=== PATIENT | female | born 1995 ===

== ENCOUNTER 2016-06-19 18:34 | Emergency (ER) | payer BC ==
[2016-06-19 18:52] VITALS: BP 121/71
--- NOTE | 2016-06-19 19:15 | EDM.PDOC ---
ED HPI GI/ABDOMINAL - General Chief Complaint: Abdominal Pain Stated Complaint: ABDOMINAL PAIN Time Seen by Provider: 06/19/16 19:14 - History of Present Illness INITIAL COMMENTS - FREE TEXT/NARRATIVE: 21-year-old female presents to the emergency room with lower abdominal discomfort. Patiently she's about 5 weeks she has not seen OB yet but is scheduled to see Dr. Mars at the end of this next month. This been complicated by some intermittent nausea since she knew she was . Today the patient developed lower abdominal discomfort this discomfort is not associated with any nausea vomiting diarrhea constipation she has not had any vaginal bleeding or discharge and she does not describe it as being crampy. She is one para zero. - Related Data Allergies/ADRs: Allergies Allergy/AdvReac Type Severity Reaction Status Date / Time No Known Allergies Allergy Verified 03/22/15 23:56 CLAM [employer]UCKER Home Meds: Home Meds Desogestrel-Ethinyl Estradiol [Desogestrel-Ethinyl Estrad Tab] 1 tab PO DAILY [History] Methylphenidate HCl [Concerta] 36 mg PO DAILY 03/22/15 [History] Escitalopram [Lexapro] 10 mg PO DAILY 06/19/16 [History] Past Medical History HEENT History: Reports: Other (see below) Other HEENT History: oral surgery [employer] History: Reports: Other OB/BYN History: 1 Neurological History: Reports: Migraines Psychiatric History: Reports: ADHD Social & Family History - Family History Family Medical History: Noncontributory - Tobacco Use Smoking Status *Q: Never Smoker - Caffeine Use Caffeine Use: Reports: Coffee - Recreational Drug Use Recreational Drug Use: No ED ROS GENERAL - Review of Systems Review Of Systems: See Below Constitutional: Reports: no symptoms. Denies: fever, chills HEENT: Reports: No symptoms Respiratory: Reports: No Symptoms Cardiovascular: Reports: No symptoms GI/Abdominal: Reports: Abdominal pain, Nausea. Denies: Constipation, Diarrhea, Vomiting : Denies: discharge, flank pain, frequency, hematuria, incontinence, urgency, urinary retention Musculoskeletal: Reports: no symptoms Neurological: Reports: No Symptoms ED EXAM, GI/ABD - Physical Exam Exam: See Below Exam Limited By: No limitations General Appearance: alert, no apparent distress Head: atraumatic, normocephalic Neck: normal inspection, supple, non-tender, full range of motion Respiratory/Chest: no respiratory distress, lungs clear, normal breath sounds Cardiovascular: regular rate, rhythm, no edema, no murmur GI/Abdominal: normal bowel sounds, soft, other (She has a suprapubic discomfort no other discomfort identified no rebound guarding or rigidity) Back Exam: normal inspection. No: CVA tenderness (L), CVA tenderness (R) Course - Vital Signs Last Recorded V/S: Last Vital Signs Temp 36.6 C 06/19/16 18:44 Pulse 91 06/19/16 18:44 Resp 16 06/19/16 18:44 BP 121/71 06/19/16 18:44 Pulse Ox 98 06/19/16 18:44 - Orders/Labs/Meds Orders: Active Orders 24 hr Category Date Time Status PATIENT RETYPE [BBK] Stat Lab 06/19/16 19:38 Results TYPE AND SCREEN [BBK] Stat Lab 06/19/16 19:38 Results Labs: Laboratory Tests 06/19/16 06/19/16 06/19/16 Range/Units 18:35 19:38 19:38 WBC 8.10 (3.98-10.04) K/mm3 RBC 4.35 (3.98-5.22) M/mm3 Hgb 12.8 (11.2-15.7) gm/L Hct 35.9 (34.1-44.9) % MCV 82.5 (79.4-94.8) fl MCH 29.4 (25.6-32.2) pg MCHC 35.7 H (32.2-35.5) g/dl RDW Std Deviation 37.6 (36.4-46.3) fL Plt Count 217 (182-369) K/mm3 MPV 11.1 (9.4-12.3) fl Neutrophils % (Manual) 67 H (40-60) % Band Neutrophils % 1 (0-10) % Lymphocytes % (Manual) 27 (20-40) % Atypical Lymphs % 0 % Monocytes % (Manual) 5 (2-10) % Eosinophils % (Manual) 0 L (0.7-5.8) % Basophils % (Manual) 0 L (0.1-1.2) Platelet Estimate Adequate Plt Morphology Comment Normal RBC Morph Comment Normal Sodium 137 (136-145) mEq/L Potassium 4.2 (3.5-5.1) mEq/L Chloride 103 (98-107) mEq/L Carbon Dioxide 25 (21-32) mEq/L Anion Gap 13.2 (5-15) BUN 10 (7-18) mg/dL Creatinine 0.7 (0.55-1.02) mg/dL Est Cr Clr Drug Dosing 124.67 mL/min Estimated GFR (MDRD) > 60 (>60) mL/min BUN/Creatinine Ratio 14.3 (14-18) Glucose 85 (74-106) mg/dL Calcium 8.8 (8.5-10.1) mg/dL Total Bilirubin 1.0 (0.2-1.0) mg/dL AST 15 (15-37) U/L ALT 18 (14-59) U/L Alkaline Phosphatase 72 (46-116) U/L Total Protein 6.6 (6.4-8.2) g/dl Albumin 3.5 (3.4-5.0) g/dl Globulin 3.1 gm/dL Albumin/Globulin Ratio 1.1 (1-2) HCG, Quant 50501.0 mIU/mL Urine Color Yellow (Yellow) Urine Appearance Clear (Clear) Urine pH 7.0 (5.0-8.0) Ur Specific Drake 1.025 (1.005-1.030) Urine Protein Negative (Negative) Urine Glucose (UA) Negative (Negative) Urine Ketones 1+ H (Negative) Urine Occult Blood Negative (Negative) Urine Nitrite Negative (Negative) Urine Bilirubin Negative (Negative) Urine Urobilinogen 1.0 (0.2-1.0) Ur Leukocyte Esterase Negative (Negative) Urine RBC Not seen (0-5) /hpf Urine WBC 0-5 (0-5) /hpf Ur Epithelial Cells Not Reportable Ur Squamous Epith Cells 10-20 H (0-5) /hpf Urine Bacteria Few (FEW) /hpf Urine Mucus Not seen (FEW) /hpf Blood Type Gel Antibody Screen 06/19/16 Range/Units 19:38 WBC (3.98-10.04) K/mm3 RBC (3.98-5.22) M/mm3 Hgb (11.2-15.7) gm/L Hct (34.1-44.9) % MCV (79.4-94.8) fl MCH (25.6-32.2) pg MCHC (32.2-35.5) g/dl RDW Std Deviation (36.4-46.3) fL Plt Count (182-369) K/mm3 MPV (9.4-12.3) fl Neutrophils % (Manual) (40-60) % Band Neutrophils % (0-10) % Lymphocytes % (Manual) (20-40) % Atypical Lymphs % % Monocytes % (Manual) (2-10) % Eosinophils % (Manual) (0.7-5.8) % Basophils % (Manual) (0.1-1.2) Platelet Estimate Plt Morphology Comment RBC Morph Comment Sodium (136-145) mEq/L Potassium (3.5-5.1) mEq/L Chloride (98-107) mEq/L Carbon Dioxide (21-32) mEq/L Anion Gap (5-15) BUN (7-18) mg/dL Creatinine (0.55-1.02) mg/dL Est Cr Clr Drug Dosing mL/min Estimated GFR (MDRD) (>60) mL/min BUN/Creatinine Ratio (14-18) Glucose (74-106) mg/dL Calcium (8.5-10.1) mg/dL Total Bilirubin (0.2-1.0) mg/dL AST (15-37) U/L ALT (14-59) U/L Alkaline Phosphatase (46-116) U/L Total Protein (6.4-8.2) g/dl Albumin (3.4-5.0) g/dl Globulin gm/dL Albumin/Globulin Ratio (1-2) HCG, Quant mIU/mL Urine Color (Yellow) Urine Appearance (Clear) Urine pH (5.0-8.0) Ur Specific Drake (1.005-1.030) Urine Protein (Negative) Urine Glucose (UA) (Negative) Urine Ketones (Negative) Urine Occult Blood (Negative) Urine Nitrite (Negative) Urine Bilirubin (Negative) Urine Urobilinogen (0.2-1.0) Ur Leukocyte Esterase (Negative) Urine RBC (0-5) /hpf Urine WBC (0-5) /hpf Ur Epithelial Cells Ur Squamous Epith Cells (0-5) /hpf Urine Bacteria (FEW) /hpf Urine Mucus (FEW) /hpf Blood Type AB NEGATIVE Gel Antibody Screen Negative - Re-Assessments/Exams Free Text/Narrative Re-Assessment/Exam: 06/19/16 21:20 Patient doing well at this time labs unrevealing quantitative hCG is 12,000. We will get a OB ultrasound in the morning patient is having mild discomfort at this point no spotting. Case reviewed with Dr. Hunter. Awaiting type and screen. 06/19/16 21:52 Patient is blood type is AB- however the patient left before getting her discharge instructions. Departure - Departure Time of Disposition: 21:29 Disposition: Home, Self-Care 01 Clinical Impression: Threatened Referrals: Gloria Cross NP [Primary Care Provider] - Eliot Mars MD [Physician] - Forms: ED Department Discharge Additional Instructions: Return to emergency room with any questions or problems. Get an OB ultrasound done sometime tomorrow. Followup with Dr. Mars on Friday - My Orders Last 24 Hours: My Active Orders 06/19/16 19:38 PATIENT RETYPE [BBK] Stat TYPE AND SCREEN [BBK] Stat - Assessment/Plan Last 24 Hours: My Active Orders 06/19/16 19:38 PATIENT RETYPE [BBK] Stat TYPE AND SCREEN [BBK] Stat
== END 2016-06-19 21:47 | disposition home or self-care (01) ==
LOC: JD.ED 18:34
DX: O20.0 Threatened abortion (principal); Z79.899 Other long term (current) drug therapy
CPT/HCPCS: 36415; 80053; 81001; 84702; 85025; 86850; 86900; 86901; 99283; 99284

== ENCOUNTER 2016-07-10 20:17 | Emergency (ER) | payer BC ==
[2016-07-10 20:30] VITALS: BP 118/84
--- NOTE | 2016-07-10 21:07 | EDM.PDOC ---
ED HPI GENERAL MEDICAL PROBLEM - General Chief Complaint: [employer] Problem Stated Complaint: LOWER ABDOMINAL PAIN Time Seen by Provider: 07/10/16 20:57 Source of Information: Reports: Patient History Limitations: Reports: No Limitations - History of Present Illness INITIAL COMMENTS - FREE TEXT/NARRATIVE: 21-year-old female presents for evaluation and treatment of pelvic pain. She is approximately 9 weeks . She is a . Ob is Dr. Mars. she has not yet seen him and has an appointment scheduled in the next 2 weeks for her first OB appointment. Reports that the pain began suddenly around 9:30 pm. She was not doing anything particular but sitting and eating. States the pain took her breath away. She did not take any Tylenol for her symptoms. Continues to have pelvic pain. No vaginal bleeding. She denies any fevers. Reports that she's been having some diarrhea over the last few days. reports one episode of diarrhea per day. None today. She vomited twice since finding out that she was . Reports some nausea that has improved after vomiting. Reports that she did have a headache this morning and took some Tylenol. The patient was in the ER on 06-19-16 for similar symptoms. She is on blood type AB-. No vaginal bleeding at that time so no RhoGAM was given. She was scheduled for an ultrasound on 06-21-16 which showed no abnormalities. - Related Data Allergies Allergy/AdvReac Type Severity Reaction Status Date / Time No Known Allergies Allergy Verified 07/10/16 20:30 Home Meds: Home Meds Multivitamin [Multivitamins] 1 each PO DAILY 07/10/16 [History] Past Medical History - Past Health History Medical/Surgical History: Denies Medical/Surgical History HEENT History: Reports: Other (See Below) Other HEENT History: oral surgery [employer] History: Reports: Other OB/BYN History: 1 Neurological History: Reports: Migraines Psychiatric History: Reports: ADHD Social & Family History - Family History Family Medical History: Noncontributory - Tobacco Use Smoking Status *Q: Never Smoker - Caffeine Use Caffeine Use: Reports: None - Recreational Drug Use Recreational Drug Use: No ED ROS GENERAL - Review of Systems Review Of Systems: See Below Constitutional: Denies: Fever GI/Abdominal: Reports: Diarrhea, Nausea, Vomiting. Denies: Abdominal Pain : Reports: Pain (suprapubic pelvic), Other (denies vaginal bleeding). Denies : Dysuria, Hematuria ED EXAM - Physical Exam Exam: See Below Exam Limited By: No Limitations General Appearance: Alert, WD/WN, No Apparent Distress Respiratory/Chest: No Respiratory Distress, Lungs Clear, Normal Breath Sounds Cardiovascular: Normal Peripheral Pulses, Regular Rate, Rhythm, No Murmur GI/Abdominal: Normal Bowel Sounds, Soft, Tender (suprapubic tenderness), Other Heart Tones: Present Heart Tones per Min: 152 Movement: Active Neurological: Alert, Oriented, Normal Cognition Psychiatric: Normal Affect, Normal Mood Skin Exam: Warm, Dry, Normal Color Course - Vital Signs Last Recorded V/S: Last Vital Signs Temp 36.4 C 07/10/16 20:23 Pulse 81 07/10/16 20:23 Resp 18 07/10/16 20:23 BP 118/84 07/10/16 20:23 Pulse Ox 99 07/10/16 20:23 - Orders/Labs/Meds Orders: Active Orders 24 hr Category Date Time Status CULTURE URINE [RM] Stat Lab 07/10/16 22:13 Ordered Labs: Laboratory Tests 07/10/16 07/10/16 Range/Units 21:20 21:28 HCG, Quant 65154.0 mIU/mL Urine Color Yellow (Yellow) Urine Appearance Clear (Clear) Urine pH 7.5 (5.0-8.0) Ur Specific Walls 1.020 (1.005-1.030) Urine Protein Negative (Negative) Urine Glucose (UA) Negative (Negative) Urine Ketones Trace H (Negative) Urine Occult Blood Negative (Negative) Urine Nitrite Negative (Negative) Urine Bilirubin Negative (Negative) Urine Urobilinogen 1.0 (0.2-1.0) Ur Leukocyte Esterase Negative (Negative) Urine RBC 0-5 (0-5) /hpf Urine WBC 0-5 (0-5) /hpf Ur Epithelial Cells 0-5 (0-5) /hpf Urine Bacteria Few (FEW) /hpf Urine Mucus Moderate H (FEW) /hpf - Re-Assessments/Exams Free Text/Narrative Re-Assessment/Exam: 07/10/16 22:26 UA returned with trace ketones and few bacteria; negative for leuks and nitrites - [place] [id number] Reviewed the labs with the patient. Will have her follow-up with ob for further care. Discharge instructions as documented. Departure - Departure Time of Disposition: 22:28 Disposition: Home, Self-Care 01 Clinical Impression: Pelvic pain affecting Qualifiers: Trimester: first trimester Qualified Code(s): O26.891 - Other specified related conditions, first trimester - Discharge Information Referrals: Eliot Mars MD [Primary Care Provider] - Forms: ED Department Discharge Additional Instructions: Follow up with your [employer] provider this week or early next week. OTC Tylenol as needed for pain relief. Please return to the ER if your symptoms change or worsen. - My Orders Last 24 Hours: My Active Orders 07/10/16 22:13 CULTURE URINE [RM] Stat - Assessment/Plan Last 24 Hours: My Active Orders 07/10/16 22:13 CULTURE URINE [RM] Stat
== END 2016-07-10 22:38 | disposition home or self-care (01) ==
LOC: JD.ED 20:17
DX: O26.891 Other specified pregnancy related conditions, first trimester (principal); R10.2 Pelvic and perineal pain; Z3A.09 9 weeks gestation of pregnancy
CPT/HCPCS: 36415; 81001; 84702; 87086; 99283; 99284